=== PATIENT | male | born 1995 | race Caucasian/White ===

== ENCOUNTER 2016-08-27 16:09 | Emergency (ER) | payer BC ==
[~2016-08-27] VITALS: Ht 182.9 cm; Wt 109.0 kg
[~2016-08-27 16:09] MED LIST: BACTRIM,SEPT1 TABLET PO; MEDROL DOSEPAK4 MG PO; NAPROSYN500 MG PO; NORCO 5/3251 TABLET PO; ULTRAM50 MG PO
[2016-08-27 16:53] LABS: HEMATOCRIT 45.3 % (38.0-50.0); MCH 29.9 PG (29.0-34.0); MCHC 33.6 G/DL (30.0-36.0); MCV 89.2 FL (86-99); MEAN PLAT.VOLUME 10.1 uM^3 (9.0-12.4); PLATELET COUNT 267 K/uL (156-360); RBC DIS.WIDTH-CV 12.4 % (11.8-14.6); RBC DIS.WIDTH-SD 40.7 % (39-53); RED BLOOD COUNT 5.08 M/uL (4.00-5.50); WHITE BLOOD COUNT 6.5 K/uL (4.1-10.2)
[2016-08-27 17:03] LABS: CHLORIDE 107 mEq/L (99-109); POTASSIUM 4.1 mEq/L (3.7-5.4); SODIUM 142 mEq/L (136-147)
[2016-08-27 17:05] LABS: GLUCOSE 90 mg/dL (70-99)
[2016-08-27 17:06] LABS: ANION GAP 8 MEQ/L (2-14)
[2016-08-27 17:09] LABS: GFR ESTIMATE (CALCULATED) > 59 mL/min/
[2016-08-27 17:10] LABS: UREA NITROGEN (BUN) 18 mg/dL (9-23)
[2016-08-27 17:13] LABS: TROP-I INTERPRETATION NEGATIVE; TROPONIN-I < 0.01 ng/mL (0.0-0.30)
[2016-08-27 18:30] VITALS: BP 131/87
== END 2016-08-27 18:30 | disposition home or self-care (01) ==
LOC: EME 16:09
DX: R07.9 Chest pain, unspecified (principal)
CPT/HCPCS: 71020; 80048; 84484; 85027; 93005; 99281; 99284

== ENCOUNTER 2016-08-31 08:13 | Emergency (ER) | payer BC ==
[~2016-08-31] VITALS: Ht 185.4 cm; Wt 108.8 kg
[2016-08-31 09:34] LABS: EOSINOPHIL (%) 5.2 % (0-5); EOSINOPHIL COUNT 0.3 K/uL (0-0.3); HEMATOCRIT 46.4 % (38.0-50.0); IMMATURE GRANULOCYTE (%) 0.4 % (0.0-0.7); INSTRUMENT ABS NEUTROPHIL CT 2.6 K/uL; LYMPHOCYTE COUNT 1.6 K/uL (1.0-2.8); MCH 29.5 PG (29.0-34.0); MCHC 33.8 G/DL (30.0-36.0); MCV 87.2 FL (86-99); MONOCYTE (%) 13.6 % (3-12); MONOCYTE COUNT 0.7 K/uL (0-0.8); NEUTROPHIL (%) 50.1 % (45-76); NEUTROPHIL COUNT 2.6 K/uL (1.8-6.4); PLATELET COUNT 264 K/uL (156-360); RBC DIS.WIDTH-CV 12.3 % (11.8-14.6); RBC DIS.WIDTH-SD 39.4 % (39-53); RED BLOOD COUNT 5.32 M/uL (4.00-5.50); WHITE BLOOD COUNT 5.2 K/uL (4.1-10.2)
[2016-08-31 09:46] LABS: D-DIMER ELISA 0.23 mg/L FEU (< 0.57)
[2016-08-31 09:48] LABS: CHLORIDE 105 mEq/L (99-109); POTASSIUM 4.5 mEq/L (3.7-5.4); SODIUM 139 mEq/L (136-147)
[2016-08-31 09:50] LABS: GLUCOSE 95 mg/dL (70-99)
[2016-08-31 09:51] LABS: ANION GAP 8 MEQ/L (2-14)
[2016-08-31 09:54] LABS: GFR ESTIMATE (CALCULATED) > 59 mL/min/
[2016-08-31 09:55] LABS: UREA NITROGEN (BUN) 16 mg/dL (9-23)
[2016-08-31 10:04] LABS: TROP-I INTERPRETATION NEGATIVE; TROPONIN-I < 0.01 ng/mL (0.0-0.30)
[2016-08-31 12:45] LABS: TROP-I INTERPRETATION NEGATIVE; TROPONIN-I < 0.01 ng/mL (0.0-0.30)
[2016-08-31 13:48] VITALS: BP 127/80
== END 2016-08-31 13:50 | disposition home or self-care (01) ==
LOC: EME 08:13
PROVIDERS: Emergency Medicine
DX: R51 Headache (principal)
CPT/HCPCS: 71010; 80048; 84443; 84484; 85025; 85379; 93005; 99281; 99285

== ENCOUNTER 2016-11-13 21:47 | Emergency (ER) | payer BC ==
[~2016-11-13] VITALS: Ht 182.9 cm; Wt 107.9 kg
[2016-11-13] MEDS ORDERED: NAPROSYN500 MG PO (23:33)
[2016-11-13] MEDS ORDERED: MEDROL DOSEPAK4 MG PO (23:33)
[2016-11-13] MEDS ORDERED: FLEXERIL10 MG PO (23:33)
[2016-11-13] MEDS ORDERED: ZYRTEC5 MG PO (23:41)
[2016-11-13 23:56] VITALS: BP 116/79
== END 2016-11-14 00:08 | disposition home or self-care (01) ==
LOC: EME 21:47
DX: M54.12 Radiculopathy, cervical region (principal)
CPT/HCPCS: 99281; 99284; J1100

== ENCOUNTER 2017-02-08 15:22 | Emergency (ER) | payer BC ==
[~2017-02-08] VITALS: Ht 185.4 cm; Wt 107.1 kg
[~2017-02-08 15:22] MED LIST changes: +FLEXERIL10 MG PO; +ZYRTEC5 MG PO
[2017-02-08 19:27] LABS: HEMATOCRIT 48.7 % (38.0-50.0); MCHC 34.5 G/DL (30.0-36.0); MEAN PLAT.VOLUME 10.4 uM^3 (9.0-12.4); PLATELET COUNT 237 K/uL (156-360); RBC DIS.WIDTH-CV 12.3 % (11.8-14.6); WHITE BLOOD COUNT 6.2 K/uL (4.1-10.2)
[2017-02-08 19:34] LABS: CHLORIDE 104 mEq/L (99-109); POTASSIUM 4.2 mEq/L (3.7-5.4); SODIUM 140 mEq/L (136-147)
[2017-02-08 19:35] LABS: GLUCOSE 83 mg/dL (70-99)
[2017-02-08 19:37] LABS: ANION GAP 14 MEQ/L (2-14)
[2017-02-08 19:39] LABS: GFR ESTIMATE (CALCULATED) > 59 mL/min/
[2017-02-08 19:40] LABS: UREA NITROGEN (BUN) 17 mg/dL (9-23)
[2017-02-08] MEDS ORDERED: REGLAN10 MG PO (19:50)
[2017-02-08] MEDS ORDERED: AMOXICILLIN875 MG PO (19:50)
[2017-02-08] MEDS ORDERED: FIORICET 50-301 EACH PO (19:50)
[2017-02-08 20:29] VITALS: BP 130/81
== END 2017-02-08 20:30 | disposition home or self-care (01) ==
LOC: EME 15:22
PROVIDERS: Physician Assistant
DX: G43.909 Migraine, unspecified, not intractable, without status migrainosus (principal); J32.9 Chronic sinusitis, unspecified
CPT/HCPCS: 70450; 80048; 85027; 99281; 99284; J1100; J1885; J2765